=== PATIENT | male | born 1990 | race Caucasian/White ===

== ENCOUNTER 2022-05-29 13:39 | Emergency (ER) | payer MEDICAID ==
[~2022-05-29] VITALS: Ht 182.9 cm; Wt 84.4 kg
--- NOTE | 2022-05-29 14:48 | NUR ---
Blood and urine were collected while in ER triage area. Patient will wait in the ER waiting room, pending available ER [email or web address].
[2022-05-29 14:52] LABS: *BILIRUBIN,URIN NEGATIVE (NEGATIVE); *BLOOD, URINE NEGATIVE (NEGATIVE); *CLARITY,URINE CLEAR (CLEAR); *COLOR,URINE YELLOW (YELLOW); *KETONES,URINE NEGATIVE (NEGATIVE); *UROBILINOGEN,URINE 0.2 E.U./dl (NORMAL); LEUKOCYTE ESTERASE ,URINE NEGATIVE (NEGATIVE); NITRITE, URINE NEGATIVE (NEGATIVE); UGLUCOSE NEGATIVE (NEGATIVE)
[2022-05-29 14:56] LABS: HEMATOCRIT 46.1 % (36.7-47.1); MEAN CORPUSCULAR HEMOGLOBIN 29.4 uug (23.8-33.4); MEAN CORPUSCULAR VOLUME 87.5 fL (73.0-96.2); PLATELET COUNT (AUTO) 236 K/uL (152-348)
--- NOTE | 2022-05-29 14:57 | NUR ---
Patient was called to come inside main ER room 2B, no answer.
[2022-05-29 15:09] LABS: POTASSIUM 3.8 mmol/L (3.5-5.1)
--- NOTE | 2022-05-29 15:10 | NUR ---
called, no answer
[2022-05-29 15:15] LABS: BILIRUBIN,DIRECT 0.1 mg/dL (0.0-0.2); BILIRUBIN,TOTAL 0.6 mg/dL (0.2-1.0); TOTAL PROTEIN, SERUM 7.6 g/dL (6.4-8.2)
--- NOTE | 2022-05-29 15:22 | NUR ---
called, no answer
--- NOTE | 2022-05-29 15:53 | NUR ---
Patient came back and our docttor talked to the patient.
--- NOTE | 2022-05-29 15:54 | NUR ---
Patient discharged to home in stable condition with brisk steady gait. Written and verbal after care instructions given. Patient verbalized understanding and compliance of instructions. Stressed follow up with primary doctor or return to ER for worsening s/s. Copies of all tests' results were given to the patient.
[2022-05-31 09:06] LABS: *GC NAA Negative (Negative)
[2022-06-01 01:05] LABS: *TRIC.VAG. NAA Negative (Negative)
== END 2022-05-29 15:55 | disposition home or self-care (01) ==
LOC: ER 13:39
DX: R10.30 Lower abdominal pain, unspecified (principal)
CPT/HCPCS: 36415; 85025; 87491; A4663